=== PATIENT | female | born 1965 | race Caucasian/White ===

== ENCOUNTER 2022-01-12 13:05 | Emergency (ER) | payer MEDICAID, OTHER ==
[~2022-01-12] VITALS: Ht 167.6 cm; Wt 77.3 kg
[2022-01-12] MEDS ORDERED: IBUPROFEN 600MG TAB PO ONE (14:20)
[2022-01-12 14:45] VITALS: BP 152/87
== END 2022-01-12 14:58 | disposition home or self-care (01) ==
LOC: M ED 13:05
DX: S99.921A Unspecified injury of right foot, initial encounter (principal); X50.9XXA Other and unspecified overexertion or strenuous movements or postures, initial encounter; Y92.89 Other specified places as the place of occurrence of the external cause; Y99.0 Civilian activity done for income or pay; Z88.2 Allergy status to sulfonamides; Z88.5 Allergy status to narcotic agent; Z88.8 Allergy status to other drugs, medicaments and biological substances; F17.200 Nicotine dependence, unspecified, uncomplicated

== ENCOUNTER → 2024-05-04 | Outpatient (REF) | payer OTHER | LOC: M LAB REF 13:57 | PROVIDERS: ATTEND Physician Assistant | DX: B34.9 Viral infection, unspecified (principal) ==

== ENCOUNTER 2024-07-17 12:31 | Emergency (ER) | payer OTHER ==
[~2024-07-17] VITALS: Ht 167.6 cm; Wt 72.6 kg
[2024-07-17 14:34] VITALS: TEMP 97.3
[2024-07-17 15:09] VITALS: BP 134/81; O2SAT 96
== END 2024-07-17 15:41 | disposition home or self-care (01) ==
LOC: M ED 12:31
DX: S93.602A Unspecified sprain of left foot, initial encounter (principal); Y92.9 Unspecified place or not applicable; Y93.9 Activity, unspecified; Y99.0 Civilian activity done for income or pay; W01.0XXA Fall on same level from slipping, tripping and stumbling without subsequent striking against object, initial encounter; Z88.2 Allergy status to sulfonamides; Z88.5 Allergy status to narcotic agent; Z88.8 Allergy status to other drugs, medicaments and biological substances